=== PATIENT | male | born 1965 | race Hispanic/Latino ===

== ENCOUNTER 2020-04-25 16:38 | Emergency (ER) | payer MEDICARE ==
[~2020-04-25] VITALS: Ht 182.9 cm; Wt 107.5 kg
[~2020-04-25 16:38] MED LIST: ASPIR 8181 MG PO; CLEOCIN HCL150 MG PO; FENOFIBRATE67 MG PO; HUMALOG100 UNIT/1 SC; HUMALOG100 UNITS/ SQ; LEVEMIR100 UNIT/1 SC; NOVOLOG MI100 UNITS/ SQ
--- NOTE | 2020-04-25 17:14 | Emergency Department Note ---
History of Present Illnes History of Present Illness Chief Complaint: Diabetic Crisis History of Present Illness This is a 55 year old male states his bs was 570 this morning at [facility] then he went to see his pcp who sent him here pt states he was supposed to get some diabetic medications from [facility], [place] but did not, denies n/v/d c/o urinating more frequently denies all other complaints . 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 Any updates have been documented here. Past Medical History Recent Fever: No Clinical Suspicion of Infectio: No New/Unexplained Change in Ment: No Past Medical History: Hypertension, Diabetes Other Medical History: pd dialysis Past Surgical History: None Other Surgery: LEFT FOOT Social History Smoking Cessation: Never Smoker Counseling Performed: No Alcohol Use: None Any Illegal Drug Use: No TB Exposure/Symptoms: No Physically hurt or threatened: No Family History Family history of heart diseas: No Other Last Tetanus: NO Review of Systems Review of Systems Constitutional: Reports no symptoms EENTM: Reports no symptoms Cardiovascular: Reports no symptoms Respiratory: Reports no symptoms Gastrointestinal: Reports no symptoms Genitourinary: Reports frequency Musculoskeletal: Reports no symptoms Integumentary: Reports no symptoms Neurological: Reports no symptoms Psychological: Reports no symptoms Endocrine: Reports no symptoms Hematological/Lymphatic: Reports no symptoms Physical Exam Related Data Allergies: Coded Allergies: No Known Allergies (Unverified , 02/19/16) Triage Vital Signs Vital Signs Date Time Temp Pulse Resp B/P (MAP) Pulse Ox O2 Delivery O2 Flow Rate FiO2 04/25/20 16:55 98.6 93 18 177/110 100 Room Air Vital signs reviewed: Yes Physical Exam CONSTITUTIONAL Constitutional: Present well-developed, Present well-nourished HENT HENT: Present normocephalic, Present atraumatic, Present oropharynx clear/moist, Present nose normal HENT L/R: Present left ext ear normal, Present right ext ear normal EYES Eyes: Reports PERRL, Reports conjunctivae normal NECK Neck: Present ROM normal PULMONARY Pulmonary: Present effort normal, Present breath sounds normal CARDIOVASCULAR Cardiovascular: Present regular rhythm, Present heart sounds normal, Present capillary refill normal, Present normal rate GASTROINTESTINAL Abdominal: Present soft, Present nontender, Present bowel sounds normal GENITOURINARY Genitourinary: Present exam deferred SKIN Skin: Present warm, Present dry MUSCULOSKELETAL Musculoskeletal: Present ROM normal NEUROLOGICAL Neurological: Present alert, Present oriented x 3, Present no gross motor or sensory deficits PSYCHOLOGICAL Psychological: Present mood/affect normal, Present judgement normal Assessment & Plan Medical Decision Making [facility] 301 Reassessment Reassessment DC WITH [facility], F/U PCP MONDAY Assessment & Plan Final Impression: (1) Diabetes Depart Disposition: HOME, SELF-CARE Last Vital Signs Date Time Temp Pulse Resp B/P (MAP) Pulse Ox O2 Delivery O2 Flow Rate FiO2 04/25/20 16:55 98.6 93 18 177/110 100 Room Air Home Meds Active Scripts Clindamycin Hcl (CLEOCIN HCL) 150 Mg Capsule, 150 MG PO TID, #30 Prov:LOGAN ARECHIGA MD 02/24/16 Insulin Human Lispro (HUMALOG) 100 Units/Ml Ml, 15 UNIT SQ TIDWM for 30 Days Prov:LOGAN ARECHIGA MD 02/24/16 Reported Medications Insulin Lispro (HUMALOG) 100 Unit/1 Ml Cartridge, 16 SC TID 02/24/16 Insulin Detemir (LEVEMIR) 100 Unit/1 Ml Vial, 28 SC BID 02/24/16 Aspirin (ASPIR 81) 81 Mg Tablet.dr, 81 MG PO DAILY 02/19/16 Fenofibrate,Micronized (FENOFIBRATE) 67 Mg Capsule, 67 MG PO DAILY 02/19/16 WILLIS ENGLISH MD Apr 25, 2020 17:14
== END 2020-04-25 17:00 | disposition home or self-care (01) ==
LOC: ER 16:56
DX: E11.65 Type 2 diabetes mellitus with hyperglycemia (principal)
CPT/HCPCS: 99282